=== PATIENT | female | born 1955 | race American Indian/Alaskan Native ===

== ENCOUNTER 2022-02-27 16:31 | Emergency (ER) | payer MEDICARE ==
--- NOTE | 2022-02-27 18:21 | XRay Report ---
XR forearm LT, XR humerus 2+V LT INDICATION / CLINICAL INFORMATION: fall. COMPARISON: None available. FINDINGS: Left humerus: Diffuse osteopenia. No acute fracture. Left shoulder joint is intact. No focal soft tis osvaldo abnormality. Left forearm: There is cortical irregularity involving the anterior distal humerus seen on lateral vi ew of the forearm, suspected nondisplaced fracture. This is not visualized on other images. Evaluatio n for joint effusion is limited, though no large joint effusion of the elbow is seen. No acute fractu re or malalignment of the left forearm. Diffuse osteopenia. No focal soft tissue abnormality. IMPRESSION: Cortical irregularity of the anterior distal humerus, suspect nondisplaced fracture. Recommend dedica gabriel images of the left elbow. No other fracture of the left humerus. No acute osseous findings of the left forearm. Signer Name: Ralph Packer MD Signed: 02/27/2022 6:17 PM Workstation Name: [id number]
[2022-02-27] MEDS ORDERED: HYDROcodone/ACETAMINOPHEN 5-325 MG TAB PO ONE (20:08)
--- NOTE | 2022-02-27 20:09 | Emergency Department Report ---
Upper Extremity - HPI Chief Complaint: Fall Stated Complaint: FALL/ARM INJURY/DIZZY Time Seen by Provider: 02/27/22 20:03 Upper Extremity: Left Elbow (Patient swelling no deformity no ecchymosis no abrasion no laceration), Left Forearm Occurred When: 5 Days Mechanism: Fall Severity: moderate Symptoms: Yes Pain with Movement, No Deformity, No Limited Range of Movement, No Numbness, No Weakness, No Swelling, No Bruising/Ecchymosis, No Laceration or Abrasion Other History: Patient 66-year-old female history of CVA x2 with hypertension and diabetes. States ground-level fall striking left elbow 5 days ago. Now with pain and swelling to left anterior elbow. Range of motion is restricted by pain. There is no numbness or tingling no paralysis. Pain is rated at 5/10 exacerbated by movement. Pain is relieved by nothing tried. ED Review of Systems ROS: Stated complaint: FALL/ARM INJURY/DIZZY Other details as noted in HPI Constitutional: denies: chills, fever Eyes: denies: eye pain, eye discharge, vision change ENT: denies: ear pain, throat pain Respiratory: denies: cough, shortness of breath, wheezing Cardiovascular: denies: chest pain, palpitations Endocrine: no symptoms reported Gastrointestinal: denies: abdominal pain, nausea, diarrhea Genitourinary: denies: urgency, dysuria, discharge Musculoskeletal: joint swelling (Mild swelling), other (Left elbow pain). denies: back pain, arthralgia Skin: denies: rash, lesions Neurological: denies: headache, weakness, paresthesias Psychiatric: denies: anxiety, depression Hematological/Lymphatic: denies: easy bleeding, easy bruising ED Past Medical Hx - Past Medical History Hx Hypertension: Yes Hx CVA: Yes Hx Diabetes: Yes - Medications Home Medications: Home Medications Medication Instructions Recorded Confirmed Last Taken Type Acetaminophen/Codeine [Tylenol 1 tab PO Q6H PRN #12 tab 02/27/22 Unknown Rx /Codeine # 3 tab] Upper Extremity Exam - Exam General: Vital signs noted. No distress. Alert and acting appropriately. Head and Torso: No HEENT Abnormality, No Neck Tenderness, No Chest/Lungs Abnormality, No Abdominal Tenderness, No Back Tenderness Shoulder Exam: Yes Normal Range of Motion in Shoulder, No Shoulder Tenderness, No Clavicle Tenderness, No Shoulder Deformity, No AC Joint Tenderness Arm Exam: Yes Arm/Humerus Tenderness (Left anterior elbow), No Arm Deformity Elbow: Yes Elbow Tenderness, No Normal Range of Motion in Elbow (Restricted by pain), No Elbow Deformity Forearm: Yes Pain with Pronation, Yes Pain with Supination, No Forearm Tenderness, No Forearm Deformity Wrist: Yes Normal ROM in Wrist, No Wrist Tenderness (Distal pulses +2 OVERSEER KOSHER KITCHEN less than 3 seconds bilateral cooker tender are equal bilateral), No Wrist Deformity, No Snuffbox Tenderness, No Pain with Axial Thumb Compression Hand: Yes Normal ROM in Digit(s), No Hand Tenderness, No Hand Deformity, No Digit Tenderness, No Digit(s) Deformity, No Tendon Dysfunction CMS Exam: Yes Normal Distal Pulses, Yes Normal Capillary Refill, Yes Normal Distal Sensation, No Broken Skin ED Course Vital Signs 02/27/22 17:41 Temperature 99.1 F Pulse Rate 95 H Respiratory 18 Rate Blood Pressure 145/76 O2 Sat by Pulse 99 Oximetry ED Medical Decision Making - Radiology Data Radiology results: report reviewed, image reviewed XR forearm LT, XR humerus 2+V LT INDICATION / CLINICAL INFORMATION: fall. COMPARISON: None available. FINDINGS: Left humerus: Diffuse osteopenia. No acute fracture. Left shoulder joint is intact. No focal soft tissue abnormality. Left forearm: There is cortical irregularity involving the anterior distal humerus seen on lateral view of the forearm, suspected nondisplaced fracture. This is not visualized on other images. Evaluation for joint effusion is limited, though no large joint effusion of the elbow is seen. No acute fracture or malalignment of the left forearm. Diffuse osteopenia. No focal soft tissue abnormality. IMPRESSION: Cortical irregularity of the anterior distal humerus, suspect nondisplaced fracture. Recommend dedicated images of the left elbow. No other fracture of the left humerus. No acute osseous findings of the left forearm. Signer Name: Nato Henson MD Signed: 02/27/2022 6:17 PM Workstation Name: [id number] Transcribed By: SUKH Dictated By: NATO HENSON MD Electronically Authenticated By: NATO HENSON MD Signed Date/Time: 02/27/221816 DD/ 12 TD/TT: LEFT ELBOW 5 VIEWS INDICATION / CLINICAL INFORMATION: Left elbow pain and swelling. COMPARISON: Left humeral series performed today. FINDINGS: BONES and JOINT(S): No acute fracture or subluxation. No significant arthritis. SOFT TISSUES: No significant abnormality. ADDITIONAL FINDINGS: None. IMPRESSION: No acute displaced fracture is identified to correlate with the previously seen distal humeral cortical irregularity. Signer Name: Vladimir Rodriguez MD Signed: 02/27/2022 8:49 PM Workstation Name: [id number] Transcribed By: BABAK Dictated By: Vladimir Rodriguez MD Electronically Authenticated By: Vladimir Rodriguez MD Signed Date/Time: 02/27/222048 DD/ 44 TD/TT: - Medical Decision Making Humerus x-ray suspicious for distal humerus fracture, follow-up elbow specific no fracture noted, distal pulses remain intact. OVER[employer] is less than 3 seconds bilateral. Class A [employer] are equal bilaterally. Pain is reproduced to movement pronation and supination plan, Abdifatah wrap left elbow, splint, follow-up with orthopedics in 1 to 2 days. Patient verbalized agreement and understanding with discharge plan. Patient DC'd home in stable condition at this time. Family member accompanying patient verbalizes agreement with treatment plan. Patient advises pain is improved with medications given in ED. Patient will be DC'd home with prescriptions. Critical care attestation.: If time is entered above; I have spent that time in minutes in the direct care of this critically ill patient, excluding procedure time. ED Disposition Clinical Impression: Elbow sprain Qualifiers: Encounter type: initial encounter Laterality: left Qualified Code(s): S53.402A - Unspecified sprain of left elbow, initial encounter Fall Qualifiers: Encounter type: initial encounter Qualified Code(s): W19.XXXA - Unspecified fall, initial encounter Disposition: 01 HOME / SELF CARE / HOMELESS Is pt being admited?: No Does the pt Need Aspirin: No Condition: Stable Instructions: Elbow Sprain, Elastic Bandage and RICE Therapy Additional Instructions: Take medication as prescribed, follow-up with orthopedic surgeon in 2-3 days. Follow-up with your doctor in 2 to 3 days return to emergency department should symptoms worsen. Prescriptions: Acetaminophen/Codeine [Tylenol /Codeine # 3 tab] 1 tab PO Q6H PRN #12 tab PRN Reason: pain Referrals: JAMAR LUNDY MD [Staff Physician] - 3-5 Days Time of Disposition: 21:31
--- NOTE | 2022-02-27 20:53 | XRay Report ---
LEFT ELBOW 5 VIEWS INDICATION / CLINICAL INFORMATION: Left elbow pain and swelling. COMPARISON: Left humeral series performed today. FINDINGS: BONES and JOINT(S): No acute fracture or subluxation. No significant arthritis. SOFT TISSUES: No significant abnormality. ADDITIONAL FINDINGS: None. IMPRESSION: No acute displaced fracture is identified to correlate with the previously seen distal humeral cortic al irregularity. Signer Name: Vladimir Rodriguez MD Signed: 02/27/2022 8:49 PM Workstation Name: [id number]
[2022-02-27 22:27] VITALS: BP 152/79
== END 2022-02-27 23:23 | disposition home or self-care (01) ==
LOC: ED 16:31
DX: S53.402A Unspecified sprain of left elbow, initial encounter (principal); I10 Essential (primary) hypertension; E11.9 Type 2 diabetes mellitus without complications; Z86.73 Personal history of transient ischemic attack (TIA), and cerebral infarction without residual deficits; W19.XXXA Unspecified fall, initial encounter; Y93.89 Activity, other specified; Y92.89 Other specified places as the place of occurrence of the external cause; Y99.8 Other external cause status
CPT/HCPCS: 99283

== ENCOUNTER 2022-04-10 20:08 | Emergency (ER) | payer MEDICARE ==
--- NOTE | 2022-04-10 22:31 | XRay Report ---
LEFT HUMERUS 2 VIEW(S) INDICATION / CLINICAL INFORMATION: Fall COMPARISON: 03/29/2022 FINDINGS: BONES / JOINT(S): There is a transverse supracondylar fracture through the left distal humerus. No si gnificant arthritis. SOFT TISSUES: No significant abnormality. ADDITIONAL FINDINGS: None. Signer Name: Duran Shepherd DO Signed: 04/10/2022 10:26 PM Workstation Name: [id number]
--- NOTE | 2022-04-10 22:38 | Cat Scan Report ---
CT HEAD WITHOUT CONTRAST INDICATION / CLINICAL INFORMATION: Fall. TECHNIQUE: All CT scans at this location are performed using CT dose reduction for ALARA by means of automated exposure control. COMPARISON: None available. FINDINGS: HEMORRHAGE: None. EXTRA-AXIAL SPACES: Mildly prominent likely related to cortical atrophy. VENTRICULAR SYSTEM: Mildly enlarged likely related to central atrophy. CEREBRAL PARENCHYMA: There are periventricular hypodensities consistent with microvascular ischemic c hange. No acute territorial infarct. MIDLINE SHIFT / HERNIATION: None. CEREBELLUM / BRAINSTEM: No significant abnormality. ORBITS: Normal as visualized SOFT TISSUES: No significant abnormality. SKULL: No significant abnormality. PARANASAL SINUSES / MASTOID AIR CELLS: Normal as visualized ADDITIONAL FINDINGS: None. IMPRESSION: 1. No acute intracranial abnormality in the setting of senescent changes. Signer Name: Duran Shepherd DO Signed: 04/10/2022 10:34 PM Workstation Name: [id number]
[2022-04-11] MEDS ORDERED: fentaNYL 100 MCG/2 ML INJ IV ONE (05:14)
--- NOTE | 2022-04-11 06:28 | Emergency Department Report ---
ED Fall HPI - General Chief Complaint: Fall Stated Complaint: FALL ON RT ARM,LIGHT HEADED,DIZZY Time Seen by Provider: 04/11/22 06:06 Source: patient Mode of arrival: Ambulatory Limitations: No Limitations - History of Present Illness Initial Comments: Patient is a 66-year-old female presenting to ED for a fall at home with injury to her left elbow. She is accompanied by her daughter who states patient uses a walker at home however attempts to walk without it at times. States he had a fall several weeks ago and is scheduled to see Ortho on the . Patient states she hit her head during the fall without loss of consciousness. She is not on blood thinners. - Related Data Previous Rx's Medication Instructions Recorded Last Taken Type Acetaminophen/Codeine [Tylenol 1 tab PO Q6H PRN #12 tab 02/27/22 Unknown Rx /Codeine # 3 tab] Allergies Allergy/AdvReac Type Severity Reaction Status Date / Time No Known Allergies Allergy Verified 02/27/22 17:42 ED Review of Systems ROS: Stated complaint: FALL ON RT ARM,LIGHT HEADED,DIZZY Other details as noted in HPI Constitutional: denies: chills, fever Respiratory: denies: cough, shortness of breath, wheezing Cardiovascular: denies: chest pain, palpitations Gastrointestinal: denies: abdominal pain, nausea, diarrhea Musculoskeletal: denies: back pain, joint swelling, arthralgia Skin: denies: rash, lesions Neurological: denies: headache, weakness, paresthesias Psychiatric: denies: anxiety, depression ED Past Medical Hx - Past Medical History Hx Hypertension: Yes Hx CVA: Yes Hx Diabetes: Yes - Medications Home Medications: Home Medications Medication Instructions Recorded Confirmed Last Taken Type Acetaminophen/Codeine [Tylenol 1 tab PO Q6H PRN #12 tab 02/27/22 Unknown Rx /Codeine # 3 tab] ED Physical Exam - General Limitations: No Limitations General appearance: alert, in no apparent distress - Head Head exam: Present: atraumatic, normocephalic - Respiratory Respiratory exam: Present: normal lung sounds bilaterally. Absent: respiratory distress - Cardiovascular Cardiovascular Exam: Present: regular rate, normal rhythm - GI/Abdominal GI/Abdominal exam: Present: soft. Absent: distended, tenderness - Extremities Exam Extremities exam: Present: tenderness (Tenderness to left elbow with limited range of motion secondary to pain) - Neurological Exam Neurological exam: Present: alert, oriented X3 - Psychiatric Psychiatric exam: Present: normal affect, normal mood - Skin Skin exam: Present: warm, dry, intact, normal color ED Course Vital Signs 04/10/22 04/11/22 04/11/22 20:09 05:29 05:32 Temperature 98.4 F Pulse Rate 67 100 H Respiratory 18 16 Rate Blood Pressure 163/95 138/67 [Right] O2 Sat by Pulse 100 100 100 Oximetry ED Medical Decision Making - Medical Decision Making X-ray of left elbow shows transverse fracture through the distal humerus. Patient given 50 mg of fentanyl and placed in a posterior splint along with a sling. She was instructed not to attempt walking without assistance and follow- up with orthopedics as scheduled. Critical care attestation.: If time is entered above; I have spent that time in minutes in the direct care of this critically ill patient, excluding procedure time. ED Disposition Clinical Impression: Fall at home, Fracture of humerus, distal, left, closed Disposition: 01 HOME / SELF CARE / HOMELESS Is pt being admited?: No Condition: Stable Instructions: Humerus Fracture Treated With Immobilization, [id number] Additional Instructions: Please follow-up with your orthopedic surgeon as scheduled. Do not attempt to walk without assistance.
[2022-04-11 07:34] VITALS: BP 161/89
== END 2022-04-11 07:33 | disposition home or self-care (01) ==
LOC: ED 20:08
DX: S42.402A Unspecified fracture of lower end of left humerus, initial encounter for closed fracture (principal); I10 Essential (primary) hypertension; I67.82 Cerebral ischemia; E11.9 Type 2 diabetes mellitus without complications; Z86.73 Personal history of transient ischemic attack (TIA), and cerebral infarction without residual deficits; W19.XXXA Unspecified fall, initial encounter; Y93.89 Activity, other specified; Y92.89 Other specified places as the place of occurrence of the external cause; Y99.8 Other external cause status
CPT/HCPCS: 29105; 70450; 73060; 96374; 99284; J3010; 99285

== ENCOUNTER 2022-04-30 14:55 | Outpatient (CLI) | payer MEDICARE ==
--- NOTE | 2022-04-30 15:59 | XRay Report ---
. XR elbow 3+V LT INDICATION: M25.521. COMPARISON: 04/10/2022 FINDINGS: There is a mildly displaced subcondylar fracture in the distal left humerus with a small joint effusi on with interval healing, unchanged in alignment from the previous exam.. Signer Name: Alexei Leon MD Signed: 04/30/2022 3:55 PM Workstation Name: [facility]
== END 2022-04-30 14:56 | disposition home or self-care (01) ==
LOC: XRAY 14:55
PROVIDERS: ATTEND Orthopaedic Surgery
DX: S42.412A Displaced simple supracondylar fracture without intercondylar fracture of left humerus, initial encounter for closed fracture (principal); M25.422 Effusion, left elbow; X58.XXXA Exposure to other specified factors, initial encounter; Y93.89 Activity, other specified; Y92.89 Other specified places as the place of occurrence of the external cause; Y99.8 Other external cause status